=== PATIENT | male | born 1960 | race Two or more races ===

== ENCOUNTER 2025-07-03 09:34 | Inpatient (IN) | payer OTHER ==
[~2025-07-03] VITALS: Ht 167.6 cm; Wt 81.6 kg
[~2025-07-03 09:34] MED LIST: BAYER ASPIRIN325 MG; GABAPENTIN100 MG; INVOKANA100 MG; JENTADUETO 2.51 EAC2; [UNRECOGNIZED DRUG - OTHER]
[2025-07-03] MEDS ORDERED: TAMSULOSIN HCL 0.4 MG CAP PO ONE ×2 (10:30→10:39)
[2025-07-03] MEDS ORDERED: RINGERS SOLUTION,LACTATED 1,000 ML IV SCH (10:30)
[2025-07-03 11:14] LABS: BASO % 0.4 % (0.1-1.2); EOS # 0.08 (0.04-0.54); EOS % 1.0 % (0.7-7.0); LYMPH # 1.18 (1.18-3.74); LYMPH % 14.2 % (19.3-53.1); MEAN PLATELET VOLUME 9.70 fl (9.4-12.4); MONO # 0.42 (0.24-0.82); MONO % 5.1 % (4.7-12.5); NEUT # 6.54 (1.56-6.13); NEUT % 78.8 % (34.0-71.1); RED CELL DISTRIBUTION WIDTH 11.1 % (11.6-14.4)
[2025-07-03 11:41] LABS: INR 0.98
[2025-07-03] MEDS ORDERED: MORPHINE SULFATE 4 MG/ML VIAL IV ONE (11:45)
[2025-07-03 11:47] LABS: PHOSPHOKINASE CREATININE 80.0 U/L (39-308)
[2025-07-03 11:48] LABS: ALT/SGPT 65.0 U/L (12-78); AST/SGOT 30.0 U/L (15-37); BILIRUBIN TOTAL 2.46 mg/dL (0.3-1.2); BILIRUBIN,CONJUGATED 0.49 mg/dL (0.0-0.2); BUN CREA RATIO 25.0 (7.0-25.0); CREATININE SERUM 1.06 mg/dL (0.70-1.30); GFR 70.34; OSMOLALITY SERUM 291.0 MOSM/KG (275-295)
[2025-07-03 12:09] LABS: GLUCOSE FASTING 463.0 mg/dL (65-100)
[2025-07-03] MEDS ORDERED: CEFTRIAXONE SODIUM 1,000 MG VIAL ONE (12:52)
[2025-07-03] MEDS ORDERED: CEFTRIAXONE SODIUM 1,000 MG VIAL IV ONE (13:00)
[2025-07-03 13:51] LABS: URINE APPEARANCE Cloudy; URINE BILIRRUBIN Small (NEGATIVE); URINE BLOOD Large; URINE COLOR Red; URINE LEUKOCYTE Small; URINE NITRATE Positive; URINE UROBILINOGEN 0.2 E.U./dl
[2025-07-03 13:56] LABS: URINE EPITHELIAL CELLS 9.1 uL (0.0-38.8); URINE WBC 643.2 uL (0.0-23.2)
[2025-07-03 14:12] LABS: URINE GLUCOSE >=1000 MG/DL (NEGATIVE); URINE KETONE 40 (NEGATIVE)
[2025-07-03 14:13] LABS: URINE BACTERIA > 9821.5 uL (0.0-1933); URINE CAST 0.57 uL (0.0-1.40); URINE PROTEIN 100 (NEGATIVE); URINE RBC > 10558.9 uL (0.0-20.8)
[2025-07-03] MEDS ORDERED: TRAMADOL HCL 50 MG TABLET PO ONE (15:00)
[2025-07-03] MEDS ORDERED: MORPHINE SULFATE 4 MG/ML CARTRIDGE IV SCH (15:13)
[2025-07-03] MEDS ORDERED: FAMOTIDINE/PF 20 MG in 0.9 % SODIUM CHLORIDE 8 ML IV PUSH SCH (15:14)
[2025-07-03] MEDS ORDERED: PROMETHAZINE HCL 25 MG/ML AMPUL IM ONE (15:15)
[2025-07-03] MEDS ORDERED: 0.9 % SODIUM CHLORIDE 1,000 ML IV SCH (15:15)
[2025-07-03] MEDS ORDERED: ONDANSETRON HCL 4 MG in 0.9 % SODIUM CHLORIDE 50 ML IV PRN (15:15)
[2025-07-03] MEDS ORDERED: DEXTROSE 50 % IN WATER 0.5 G/ML DISP.SYRIN IV PRN (15:15)
[2025-07-03] MEDS ORDERED: ACETAMINOPHEN 500 MG GEL..CAP PO PRN (15:15)
[2025-07-03] MEDS ORDERED: INSULIN LISPRO 1,000 UNIT/10 ML UNITS SUBCUTANEO PRN (15:15)
[2025-07-03] MEDS ORDERED: PROMETHAZINE HCL 25 MG/ML AMPUL ONE (16:32)
[2025-07-03] MEDS ORDERED: INSULIN LISPRO 1,000 UNIT/10 ML UNITS SUBCUTANEO ONE (21:57)
[2025-07-04 03:31] VITALS: BP 109/72; O2SAT 98
[2025-07-04 03:34] LABS: TSH 0.594 uIU/mL (0.358-3.74)
[2025-07-04] MEDS ORDERED: CEFTRIAXONE SODIUM 2,000 MG VIAL ONE (07:41)
[2025-07-04] MEDS ORDERED: FAMOTIDINE/PF 20 MG/2 ML VIAL ONE (07:41)
[2025-07-04] MEDS ORDERED: CEFTRIAXONE SODIUM 2,000 MG in 0.9 % SODIUM CHLORIDE 100 ML IV SCH (09:00)
[2025-07-04 09:49] VITALS: BP 114/64; O2SAT 98
[2025-07-04] MEDS ORDERED: SENNA/DOCUSATE SODIUM 1 TAB TABLET PO SCH (10:08)
[2025-07-04] MEDS ORDERED: POLYETHYLENE GLYCOL 3350 17 GM BLIST.PACK PO SCH (10:09)
[2025-07-04] MEDS ORDERED: INSULIN LISPRO 1,000 UNIT/10 ML UNITS SUBCUTANEO PRN (10:30)
[2025-07-04] MEDS ORDERED: DEXTROSE 50 % IN WATER 0.5 G/ML DISP.SYRIN IV PRN (10:30)
[2025-07-04 18:26] VITALS: BP 110/62
[2025-07-04] MEDS ORDERED: MORPHINE SULFATE 4 MG/ML CARTRIDGE IV SCH (21:00)
[2025-07-05 03:08] VITALS: BP 109/65; O2SAT 96
[2025-07-05 06:11] LABS: BASO % 0.2 % (0.1-1.2); EOS # 0.14 (0.04-0.54); EOS % 3.2 % (0.7-7.0); LYMPH # 0.66 (1.18-3.74); LYMPH % 15.1 % (19.3-53.1); MEAN PLATELET VOLUME 10.10 fl (9.4-12.4); MONO # 0.40 (0.24-0.82); MONO % 9.2 % (4.7-12.5); NEUT # 3.13 (1.56-6.13); NEUT % 71.6 % (34.0-71.1); RED CELL DISTRIBUTION WIDTH 11.3 % (11.6-14.4)
[2025-07-05 06:44] LABS: BUN CREA RATIO 31.0 (7.0-25.0); CREATININE SERUM 1.04 mg/dL (0.70-1.30); GFR 71.9; OSMOLALITY SERUM 301.0 MOSM/KG (275-295)
[2025-07-05 08:21] LABS: GLUCOSE FASTING 404.0 mg/dL (65-100)
[2025-07-05 09:22] VITALS: BP 118/66; O2SAT 98
[2025-07-05] MEDS ORDERED: INSULIN LISPRO 1,000 UNIT/10 ML UNITS SUBCUTANEO SCH (11:00)
[2025-07-05 18:39] VITALS: BP 102/61
[2025-07-05] MEDS ORDERED: INSULIN GLARGINE,HUM.REC.ANLOG 1,000 UNITS/10 ML UNITS SUBCUTANEO SCH (21:00)
[2025-07-06 03:02] VITALS: BP 152/87; O2SAT 98
[2025-07-06 08:07] LABS: BUN CREA RATIO 33.0 (7.0-25.0); CREATININE SERUM 0.76 mg/dL (0.70-1.30); GFR 103.26; OSMOLALITY SERUM 291.0 MOSM/KG (275-295)
[2025-07-06 08:09] LABS: GLUCOSE FASTING 329.0 mg/dL (65-100)
[2025-07-06 09:36] VITALS: BP 161/81; O2SAT 97
[2025-07-06] MEDS ORDERED: INSULIN LISPRO 1,000 UNIT/10 ML UNITS SUBCUTANEO SCH (16:00)
[2025-07-06 18:55] VITALS: BP 159/82; O2SAT 98
[2025-07-06] MEDS ORDERED: INSULIN GLARGINE,HUM.REC.ANLOG 1,000 UNITS/10 ML UNITS SUBCUTANEO SCH (21:00)
== END 2025-07-06 20:47 | disposition home or self-care (01) | DRG 690 ==
LOC: ER 09:35 → MEDI 16:07 → SEC-K 16:07 → MEDI 23:39
PROVIDERS: General Practice; Student in an Organized Health Care Education/Training Program; ADMIT Student in an Organized Health Care Education/Training Program; ATTEND Student in an Organized Health Care Education/Training Program
PROC: BT43ZZZ Ultrasonography of Bilateral Kidneys (ICD-10-PCS; principal; 2025-07-03)
PROC: BW21ZZZ Computerized Tomography (CT Scan) of Abdomen and Pelvis (ICD-10-PCS; 2025-07-03)
DX: N39.0 Urinary tract infection, site not specified (principal); N12 Tubulo-interstitial nephritis, not specified as acute or chronic; R31.0 Gross hematuria; R10.A0 Flank pain, unspecified side; N20.0 Calculus of kidney